=== PATIENT | female | born 1980 | race Caucasian/White ===

== ENCOUNTER 2021-07-11 13:23 | Emergency (ER) | payer SELFPAY ==
[~2021-07-11] VITALS: Ht 157.5 cm; Wt 59.0 kg
[2021-07-11 13:25] VITALS: BP 145/104
[2021-07-11] MEDS: diazePAM 5 MG TAB PO ONE (14:43)
[2021-07-11] MEDS: DEXAMETHASONE 10 MG/ML VIAL IM ONE (14:43)
[2021-07-11] MEDS: KETOROLAC 30 MG/ML VIAL IM ONE (14:43)
[2021-07-11] MEDS ORDERED: LID5T TP (15:44)
[2021-07-11] MEDS ORDERED: NAPR-54 PO (15:44)
[2021-07-11] MEDS ORDERED: CYCL-711 PO (15:44)
[2021-07-11] MEDS: oxyCODONE/APAP 5/325 MG 1 TAB TAB PO ONE (16:04)
--- NOTE | 2021-07-11 16:37 | NUR ---
Patient discharged with v/s stable. Written and verbal after care instructions given and explained. Patient alert, oriented and verbalized understanding of instructions. Ambulatory with steady gait. All questions addressed prior to discharge. ID band removed. Patient advised to follow up with PMD. Rx of FLEXERIL, LIDOCAINE PATCH, AND NAPROXEN given. Patient educated on indication of medication including possible reaction and side effects. Opportunity to ask questions provided and answered.
== END 2021-07-11 16:37 | disposition home or self-care (01) ==
LOC: MED 13:23
DX: M54.50 Low back pain, unspecified (principal); G89.29 Other chronic pain; Z79.899 Other long term (current) drug therapy; Z79.1 Long term (current) use of non-steroidal anti-inflammatories (NSAID)
CPT/HCPCS: 72110; 96372; 99284; J1100; J1885